=== PATIENT | female | born 1980 | race Caucasian/White ===

== ENCOUNTER 2023-11-13 11:23 | Emergency (ER) | payer OTHER ==
[~2023-11-13] VITALS: Ht 160 cm; Wt 68.0 kg
[2023-11-13] MEDS ORDERED: MENEST0.3 MG PO (11:33)
[2023-11-13] MEDS ORDERED: ENDOMETRIN100 MG VG (11:33)
== END 2023-11-13 12:44 | disposition home or self-care (01) ==
LOC: ER 11:24
DX: O26.899 Other specified pregnancy related conditions, unspecified trimester (principal); M79.604 Pain in right leg